=== PATIENT | female | born 1945 | race Caucasian/White ===

== ENCOUNTER → 2017-06-15 | Outpatient (CLI) | payer MEDICARE ==
[~2017-06-15] MED LIST: NONE PER PT
[2017-06-15 12:46] LABS: BLOOD UREA NITROGEN 16 mg/dL (7-18)
[2017-06-15 12:55] LABS: HEMATOCRIT 45.4 % (34.6-47.8); HEMOGLOBIN 15.3 g/dL (11.7-16.4); WHITE BLOOD COUNT 6.8 x10^3/uL (3.4-10)
[2017-06-15 13:12] LABS: ASPARTATE AMINO TRANSFERASE 19 U/L (15-37)
[2017-06-15 13:13] LABS: PATH.CAST-FLAG NOT PRESENT; SPERM-FLAG NOT PRESENT; SRC-FLAG NOT PRESENT; XTAL-FLAG NOT PRESENT; YLC-FLAG NOT PRESENT
== END | disposition home or self-care (01) ==
LOC: CFH 10:15
PROVIDERS: ATTEND Nurse Practitioner Primary Care
DX: Z00.01 Encounter for general adult medical examination with abnormal findings (principal); I10 Essential (primary) hypertension; R53.83 Other fatigue; R01.1 Cardiac murmur, unspecified; R59.9 Enlarged lymph nodes, unspecified; M16.11 Unilateral primary osteoarthritis, right hip; Z78.0 Asymptomatic menopausal state; Z82.49 Family history of ischemic heart disease and other diseases of the circulatory system; Z80.0 Family history of malignant neoplasm of digestive organs; R79.89 Other specified abnormal findings of blood chemistry
CPT/HCPCS: 36415; 80053; 80061; 81001; 82043; 82306; 82607; 82746; 83036; 84207; 84425; 84439; 84443; 84481; 85025; 86803; 87086

== ENCOUNTER → 2017-06-22 | Outpatient (CLI) | payer MEDICARE | END | disposition home or self-care (01) | LOC: CFH 10:10 → EDSTATUS 10:45 | PROVIDERS: ATTEND Nurse Practitioner Primary Care | DX: Z12.31 Encounter for screening mammogram for malignant neoplasm of breast (principal) | CPT/HCPCS: 77063; G0202 ==

== ENCOUNTER 2020-03-15 12:20 | Emergency (ER) | payer MEDICARE, OTHER ==
[~2020-03-15] VITALS: Ht 157.5 cm; Wt 74.0 kg
[2020-03-15 12:22] VITALS: BP 174/103
== END 2020-03-15 14:18 | disposition home or self-care (01) ==
LOC: ED 13:28
DX: S76.011A Strain of muscle, fascia and tendon of right hip, initial encounter (principal); Z96.649 Presence of unspecified artificial hip joint; W01.0XXA Fall on same level from slipping, tripping and stumbling without subsequent striking against object, initial encounter; Y93.89 Activity, other specified; Y92.009 Unspecified place in unspecified non-institutional (private) residence as the place of occurrence of the external cause; Y99.8 Other external cause status
CPT/HCPCS: 99282